=== PATIENT | male | born 1995 | race African-American/Black ===

== ENCOUNTER 2017-02-09 16:42 | Emergency (ER) | payer OTHER ==
[~2017-02-09] VITALS: Ht 182.9 cm; Wt 73.0 kg
[2017-02-09 16:42] VITALS: BP 147/80
[~2017-02-09 16:42] MED LIST: CELE10TA PO; TRAZ50TA11 PO
--- NOTE | 2017-02-09 18:33 | REP ---
REASON: Pain after fall. COMPARISON: None. FINDINGS: The joint spaces are symmetric and relatively well maintained. There is no evidence of acute fracture or destructive osseous lesion. IMPRESSION: Negative. Signed by Placido Rodarte DO 02/09/2017 07:10 P
[2017-02-09] MEDS ORDERED: IBUP-1022 PO (19:24)
== END 2017-02-09 19:35 | disposition home or self-care (01) ==
LOC: M ED 16:42
DX: S96.911A Strain of unspecified muscle and tendon at ankle and foot level, right foot, initial encounter (principal); X50.1XXA Overexertion from prolonged static or awkward postures, initial encounter; Y92.9 Unspecified place or not applicable; Y93.9 Activity, unspecified; Y99.0 Civilian activity done for income or pay